=== PATIENT | female | born 1980 | race African-American/Black ===

== ENCOUNTER 2021-01-10 06:40 | Emergency (ER) | payer SELFPAY ==
[~2021-01-10] VITALS: Ht 175.3 cm; Wt 104.0 kg
[2021-01-10] MEDS: FAMOTIDINE 20 MG/2 ML VIAL IVP ONE (07:25)
[2021-01-10] MEDS: IV NORMAL SALINE 1000ML BAG 1,000 ML IV ONE ×2 (07:25→07:58)
[2021-01-10] MEDS: HALOPERIDOL LACTATE 5 MG/ML VIAL. IVP ONE (07:26)
[2021-01-10] MEDS: ONDANSETRON ODT 4 MG TAB.RAPDIS. PO ONE (07:28)
[2021-01-10 07:29] LABS: BASO # 0.1 x10^3/uL (0.0-0.2); BASO % 1 % (0-3); EOS % 0 % (0-3); HEMATOCRIT 43.2 % (36.0-47.0); HEMOGLOBIN 14.9 g/dL (12.0-15.5); LYMPH # 2.5 x10^3/uL (1.0-4.8); LYMPH % 22 % (24-48); MEAN CORPUSCULAR HEMOGLOBIN 31 pg (25-35); MEAN CORPUSCULAR HGB CONC 34 g/dL (31-37); MEAN CORPUSCULAR VOLUME 90 fL (79-100); MONO # 0.5 x10^3/uL (0.0-1.1); MONO % 4 % (0-9); NEUT # 8.4 x10^3/uL (1.8-7.7); NEUT % 73 % (31-73); PLATELET COUNT 382 x10^3/uL (140-400); RED BLOOD COUNT 4.81 x10^6/uL (3.50-5.40); RED CELL DISTRIBUTION WIDTH 14.6 % (11.5-14.5); WHITE BLOOD COUNT 11.6 x10^3/uL (4.0-11.0)
[2021-01-10 07:33] LABS: CALCIUM 9.7 mg/dL (8.5-10.1); GFR 61.7; POTASSIUM 3.9 mmol/L (3.5-5.1)
[2021-01-10] MEDS: METOCLOPRAMIDE HCL 10 MG/2 ML VIAL. IVP ONE (07:55)
[2021-01-10 08:11] LABS: ACETAMIN < 2.0 mcg/ml (10-30)
--- NOTE | 2021-01-10 08:19 | RAD ---
XR CHEST 1V CLINICAL INDICATIONS: Nausea: COMPARISON: None available. Findings: No acute lung infiltrate or pleural effusion or pulmonary edema or lung mass or pneumothora x is seen. The heart size, pulmonary vasculature, mediastinum and both bibiana are unremarkable. IMPRESSION: No acute radiographic abnormality is seen. Electronically signed by: Boris Pardo MD (01/10/2021 8:17 AM) [id number]
--- NOTE | 2021-01-10 08:30 | PHYS DOC ---
Past Medical History Past Medical History: No Pertinent History Past Surgical History: No Surgical History Smoking Status: Current Every Day Smoker Alcohol Use: Occasionally Additional Information: DRANK 1 BOTTLE OF WINE AND SEVERAL SHOTS OF HINESEY LAST NIGHT. USUALLY DRINKS MONTHLY. Social History Narrative: REPORTS THAT SHE SMOKES DAILY. DID SMOKE LAST NIGHT FROM HER OWN SUPPLY. General Adult EDM: Chief Complaint: ALCOHOL INTOXICATION HPI: HPI: 40-year-old female past medical history of frequent daily marijuana use, presents the ED with complaints of epigastric abdominal pain in the setting of intractable nausea, nonbloody, nonbilious vomiting that started around 1:00 this morning after patient drank a bottle of wine and shots of karley, over the course of the day. Patient reports she rarely drinks alcohol. States she ate barbecue with her who has no symptoms of nausea or vomiting. No associated diarrhea or chest pressure. Review of Systems: Review of Systems: Constitutional: Denies fever or chills. [] Eyes: Denies change in visual acuity. [] HENT: Denies nasal congestion or sore throat. [] Respiratory: Denies cough or shortness of breath. [] Cardiovascular: Denies chest pain or edema. [] GI: Denies melena, hematochezia, hematemesis or diarrhea. [] : Denies dysuria or vaginal bleeding Musculoskeletal: Denies back pain or joint pain. [] Integument: Denies rash or diaphoresis Neurologic: Denies headache, focal weakness or sensory changes. [] Endocrine: Denies polyuria or polydipsia. [] Lymphatic: Denies swollen glands. [] Psychiatric: Denies depression or anxiety. [] Heart Score: C/O Chest Pain: No Risk Factors: Risk Factors: DM, Current or recent (<one month) smoker, HTN, HLP, family history of CAD, obesity. Risk Scores: Score 0 - 3: 2.5% MACE over next 6 weeks - Discharge Home Score 4 - 6: 20.3% MACE over next 6 weeks - Admit for Clinical Observation Score 7 - 10: 72.7% MACE over next 6 weeks - Early Invasive Strategies Current Medications: Current Medications Medications (Trade) Dose Ordered Sig/Huber Start Time Stop Time Status Last Admin Dose Admin Famotidine (Pepcid Vial) 20 mg 1X ONCE 01/10/21 07:30 01/10/21 07:31 DC 01/10/21 07:25 20 MG Haloperidol Lactate (Haldol Inj) 5 mg 1X ONCE 01/10/21 07:30 01/10/21 07:31 DC 01/10/21 07:26 5 MG Metoclopramide HCl (Reglan Vial) 10 mg 1X ONCE 01/10/21 07:45 01/10/21 07:46 DC 01/10/21 07:55 10 MG Ondansetron HCl (Zofran Odt) 8 mg 1X ONCE 01/10/21 07:15 01/10/21 07:16 DC 01/10/21 07:28 8 MG Sodium Chloride 1,000 ml @ 1,000 mls/hr 1X ONCE 01/10/21 07:45 01/10/21 08:44 01/10/21 07:58 1,000 MLS/HR Allergies: Allergies: Allergies Coded Allergies Type Severity Reaction Last Updated Verified No Known Drug Allergies 01/10/21 No Physical Exam: PE: Constitutional: Appears uncomfortable, dry heaving with yellow emesis in basin, afebrile, no tachycardia HENT: Normocephalic, atraumatic, Eyes: EOMI, conjunctiva normal, no discharge. Neck: Normal range of motion, supple, Cardiovascular: S1/2 present, regular rhythm Lungs & Thorax: Speaking in full sentences, bilateral equal chest rise, no tachypnea or increased work of breathing Abdomen: soft, epigastric abdominal pain, no rigidity or guarding, no Soni sign, no McBurney's point tenderness Skin: Warm, dry, no erythema, no rash. [] Back: No tenderness, no CVA tenderness. [] Extremities: No tenderness, no cyanosis, no lower extremity edema Neurologic: Alert and oriented X 3, normal motor function, normal sensory function, no focal deficits noted. [] Psychologic: Affect normal, judgement normal, mood normal. [] Current Patient Data: Labs: Laboratory Tests Test 01/10/21 07:05 White Blood Count 11.6 x10^3/uL (4.0-11.0) H Red Blood Count 4.81 x10^6/uL (3.50-5.40) Hemoglobin 14.9 g/dL (12.0-15.5) Hematocrit 43.2 % (36.0-47.0) Mean Corpuscular Volume 90 fL (79-100) Mean Corpuscular Hemoglobin 31 pg (25-35) Mean Corpuscular Hemoglobin Concent 34 g/dL (31-37) Red Cell Distribution Width 14.6 % (11.5-14.5) H Platelet Count 382 x10^3/uL (140-400) Neutrophils (%) (Auto) 73 % (31-73) Lymphocytes (%) (Auto) 22 % (24-48) L Monocytes (%) (Auto) 4 % (0-9) Eosinophils (%) (Auto) 0 % (0-3) Basophils (%) (Auto) 1 % (0-3) Neutrophils # (Auto) 8.4 x10^3/uL (1.8-7.7) H Lymphocytes # (Auto) 2.5 x10^3/uL (1.0-4.8) Monocytes # (Auto) 0.5 x10^3/uL (0.0-1.1) Eosinophils # (Auto) 0.0 x10^3/uL (0.0-0.7) Basophils # (Auto) 0.1 x10^3/uL (0.0-0.2) Sodium Level 144 mmol/L (136-145) Potassium Level 3.9 mmol/L (3.5-5.1) Chloride Level 106 mmol/L (98-107) Carbon Dioxide Level 18 mmol/L (21-32) L Anion Gap 20 (6-14) H Blood Urea Nitrogen 14 mg/dL (7-20) Creatinine 1.0 mg/dL (0.6-1.0) Estimated GFR (Cockcroft-Gault) 61.7 Glucose Level 126 mg/dL (70-99) H Calcium Level 9.7 mg/dL (8.5-10.1) Lipase 72 U/L (73-393) L Salicylates Level 5.0 mg/dL (2.8-20.0) Salicylate Last Dose Date Unknown Salicylate Last Dose Time Unknown Acetaminophen Level < 2.0 mcg/ml (10-30) L Acetaminophen Last Dose Date Unknown Acetaminophen Last Dose Time Unknown Ethyl Alcohol Level 51 mg/dL (0-10) H Laboratory Tests 01/10/21 07:05 Laboratory Tests 01/10/21 07:05 Vital Signs: Vital Signs Date Time Temp Pulse Resp B/P (MAP) Pulse Ox O2 Delivery O2 Flow Rate FiO2 01/10/21 07:08 98.1 80 24 142/78 (99) 100 Room Air 98.1 EKG: EKG: Sinus rhythm at 71 bpm, no axis deviation, QTC prolongation 478, T wave inversion lead III, no ST elevations or ST depressions, no active chest pain Radiology/Procedures: Radiology/Procedures: [] Course & Med Decision Making: Course & Med Decision Making Pertinent Labs and Imaging studies reviewed. (See chart for details) Of nausea, vomiting epigastric abdominal pain in the setting of marijuana use, alcohol abuse and hiatal hernia -etiology is to cause patient's symptoms. Patient served in ED with resolution of symptoms, no further abdominal pain. No signs of pancreatitis or atypical ACS. Patient is requesting be discharged home. Will discharge home with strict ED return precautions were given for intractable nausea or vomiting, fever, severe pain or dehydration. Encouraged urgent outpatient follow-up with PMD and surgery for hiatal hernia definitive management. Life-threatening processes were considered but are low suspicion at this time, given history, physical exam and ED workup. Pt was educated on all prescription medications and adverse effects. All patient's questions were answered and pt was stable at time of discharge. Life/limb-threatening differential includes but is not limited to, aortic dissection, aortic aneurysm, acute coronary syndrome, surgical abdomen (appendicitis, cholecystitis, ischemic bowel, strangulated hernia, etc), bowel obstruction or volvulus, bladder outlet obstruction, gastrointestinal bleeding, inflammatory bowel disease, peptic ulcer disease, ACS/CAD, sepsis, diverticular disease, ureterolithiasis, nephrolithiasis, ovarian or testicular torsion, ectopic , vaginal hemorrhage, or genitourinary infection. I spoken with the patient and her caregivers. I explained the patient's condition, diagnoses and treatment plan based on the information available to me at this time. I have answered the patient and her caregiver's questions and addressed any concerns. The patient and her caregivers have a good understanding of patient's diagnosis, condition and treatment plan as can be expected at this point. Vital signs have been stable. Patient's condition is stable and appropriate for discharge from the emergency department. Patient will pursue further outpatient evaluation with primary care physician or other designated or consulting physician as outlined in the discharge instructions. The patient and/or caregivers are agreeable to this plan of care and follow-up instructions have been explained in detail. The patient and/or caregivers have received these instructions in written form and have expressed an understanding of the discharge instructions. The patient and/or caregivers are aware that any significant change of condition or worsening of symptoms should prompt immediate return to this or the closest emergency department or call to 911. Marcial Disclaimer: Marcial Disclaimer: This electronic medical record was generated, in whole or in part, using a voice recognition dictation system. Departure Departure Impression: Primary Impression: Nausea & vomiting Additional Impressions: Alcohol intoxication Marijuana use Hiatal hernia Disposition: HOME / SELF CARE / HOMELESS Condition: STABLE Referrals: NO PCP (PCP) Follow-up with your primary care physician in 3 to 5 days for reevaluation or FOLLOW UP WITH FAMILY MEDICINE: [address] [facility], [facility] [address] [place] [address] Patient Instructions: Alcohol Intoxication, Hiatal Hernia, Marijuana Abuse- Brief, Nausea and Vomiting Additional Instructions: FOLLOW UP WITH SURGERY: for hiatal hernia management [facility] Address: [address] [facility] [address], [facility] [address] [place] [address] EMERGENCY DEPARTMENT GENERAL DISCHARGE INSTRUCTIONS Thank you for coming to [facility] Emergency Department (ED) today and trusting us with you care. We trust that you had a positive experience in our Emergency Department. If you wish to speak to the department management, you may call the Director at [phone]. YOUR FOLLOW UP INSTRUCTIONS ARE FOLLOWS: 1. Do you have a private Doctor? If you do not have a private doctor, please ask for a resource list of physicians or clinics that may be able to assist you with follow up care. 2. The Emergency Physicain has interpreted your x-rays. The X-Ray specialist will also review them. If there is a change in the findings, you will be notified in 48 hours when at all possible. 3. A lab test or culture has been done, your results will be reviewed and you will be notified if you need a change in treatment. ADDITIONAL INSTRUCTIONS AND INFORMATION: 1. Your care today has been supervised by a physician who is specially trained in emergency care. Many problems require more than one evaluation for a complete diagnosis and treatment. We recommend that you schedule your follow up appointment as recommended to ensure complete treatment of you illness or injury. If you are unable to obtain follow up care and continue to have a problem, or if your condition worsens, we recommend that you return to the ED. 2. We are not able to safely determine your condition over the phone nor are we able to give sound medical advice over the phone. For these safety reasons, if you call for medical advice we will ask you to come to the ED for further evaluation. 3. If you have any questions regarding these discharge instructions please call the ED at [phone]. SAFETY INFORMATION: In the interest of safety, wellness, and injury prevention; we encourage you to wear your sealbelt, if you smoke; quite smoking, and we encourage family to use a protective helmet for bicycling and other sporting events that present an increased risk for head injury. IF YOUR SYMPTOMS WORSEN OR NEW SYMPTOMS DEVELOP, OR YOU HAVE CONCERNS ABOUT YOUR CONDITION; OR IF YOUR CONDITION WORSENS WHILE YOU ARE WAITING FOR YOUR FOLLOW UP APPOINTMENT; EITHER CONTACT YOUR PRIMARY CARE DOCTOR, THE PHYSICIAN WHOSE NAME AND NUMBER YOU WERE GIVEN, OR RETURN TO THE ED IMMEDIATELY. Scripts Ondansetron (ONDANSETRON ODT) 4 Mg Tab.rapdis 1 TAB PO PRN Q6-8HRS, #20 TAB Prov: BERTHA SPENCER DO 01/10/21 BERTHA SPENCER DO January 10, 2021 08:30
[2021-01-10] MEDS: PROCHLORPERAZINE 10 MG/2 ML VIAL. IV ONE (09:29)
[2021-01-10 09:36] LABS: BILIRUBIN,URINE NEGATIVE (NEG); NITRITE,URINE NEGATIVE (NEG); PH,URINE 5.5 (<5.0-8.0); PROTEIN,URINE NEGATIVE (NEG-TRACE); UROBILINOGEN,URINE 0.2 mg/dL (0.2 mg/dL)
[2021-01-10 09:38] LABS: BARBITURATES NEG (NEG); BENZODIAZEPINES NEG (NEG); CANNABINOIDS POS (NEG); COCAINE NEG (NEG); METHADONE NEG (NEG); OPIATES NEG (NEG); PHENCYCLIDINE NEG (NEG)
[2021-01-10 09:39] LABS: U PREG PATIENT NEGATIVE (NEG)
[2021-01-10 09:42] LABS: AMPHETAMINE/METHAMPHETAMINE NEG (NEG)
[2021-01-10] MEDS: IOHEXOL 300 MG/ML 100ML VIAL. IV ONE (09:45)
[2021-01-10] MEDS ORDERED: CONTRAST GIVEN. MC PRN (09:45)
[2021-01-10 09:46] LABS: CLARITY,URINE CLOUDY; COLOR,URINE RED
[2021-01-10 09:47] LABS: BACTERIA,URINE FEW /HPF (0-FEW); RBC,URINE TNTC /HPF (0-2); WBC,URINE OCC /HPF (0-4)
--- NOTE | 2021-01-10 10:06 | EKG ---
[facility] [address] [place] [address] Test Date: 2021-01-10 Test Time: 08:10:55 Pat Name: RACHELLE ANGEL Department: Room: Gender: F Button Inspector: : 1980 Requested By: BERTHA PSENCER Order Number: [id number] Reading MD: Jeovany Maxwell Measurements Intervals [place] Rate: 71 P: 67 IN: 186 QRS: 43 QRSD: 86 T: 18 QT: 440 QTc: 478 Interpretive Statements SINUS RHYTHM QRS(T) CONTOUR ABNORMALITY CONSISTENT WITH ANTEROSEPTAL INFARCT AGE UNDETERMINED ABNORMAL ECG RI6.02 No previous ECG available for comparison Electronically Signed On 01-12-2021 15:26:29 CDT by Jeovany Maxwell
--- NOTE | 2021-01-10 10:41 | RAD ---
CT ABDOMEN+PELVIS W History: epigastric abdominal pain Comparison: None. Technique: After administration of intravenous contrast, helical CT of the abdomen and pelvis was per formed from the lung bases through the ischial tuberosities. Coronal and sagittal reconstructions wer e obtained. 75 mL of Omnipaque 300 were used. One or more of the following dose reduction techniques were utilized: Automated exposure control (AEC), Adjustment of mA and/or kV according to patient size , Use of iterative reconstruction technique such as ASiR, CT scan done according to ALARA and image g ently/image wisely Abdomen Findings: The visualized lung bases are clear. Small hiatal hernia. The liver, gallbladder, pancreas, spleen, and bilateral adrenal glands are normal. Symmetric renal enhancement. There is no focal renal mass. There is no hydronephrosis. The visualized loops of small bowel are normal. The visualized loops of large bowel are normal. There is no evidence of bowel obstruction. Appendix is normal. There is no free fluid. There is no mesenteric or retroperitoneal adenopathy. The abdominal aorta is normal in caliber. Pelvis Findings: Urinary bladder is normal. Uterus is present. No pelvic free fluid. There is no pelvic or inguinal ad enopathy. There is no acute bony abnormality. IMPRESSION: 1. No acute findings. 2. Small hiatal hernia. Electronically signed by: Pancho Kelsey MD (01/10/2021 10:39 AM) [id number]
[2021-01-10 12:50] VITALS: BP 146/67
[2021-01-10] MEDS ORDERED: ONDA4TAB12 PO (13:01)
== END 2021-01-10 13:33 | disposition home or self-care (01) ==
LOC: ER 06:40
DX: K44.9 Diaphragmatic hernia without obstruction or gangrene (principal); R11.2 Nausea with vomiting, unspecified; F12.90 Cannabis use, unspecified, uncomplicated; F10.129 Alcohol abuse with intoxication, unspecified; Y90.2 Blood alcohol level of 40-59 mg/100 ml; F17.200 Nicotine dependence, unspecified, uncomplicated
CPT/HCPCS: 36415; 71045; 74177; 80048; 80307; 80329; 81001; 81025; 82550; 83690; 83735; 83930; 85025; 87086; 93005; 96361; 96374; 96375; 99285; G0480; J0780; J1630; J2765; J3490; J7030; Q9967

== ENCOUNTER 2021-03-18 10:44 | Emergency (ER) | payer SELFPAY ==
[~2021-03-18] VITALS: Ht 175.3 cm; Wt 115.3 kg
[~2021-03-18 10:44] MED LIST: ONDA4TAB12 PO
[2021-03-18 11:20] LABS: BILIRUBIN,URINE NEGATIVE (NEG); CLARITY,URINE CLEAR; COLOR,URINE YELLOW; NITRITE,URINE NEGATIVE (NEG); PROTEIN,URINE NEGATIVE (NEG-TRACE)
[2021-03-18 11:27] LABS: AMPHETAMINE/METHAMPHETAMINE NEG (NEG); BARBITURATES NEG (NEG); BENZODIAZEPINES NEG (NEG); CANNABINOIDS POS (NEG); COCAINE NEG (NEG); METHADONE NEG (NEG); OPIATES NEG (NEG); PHENCYCLIDINE NEG (NEG)
[2021-03-18 11:38] LABS: BACTERIA,URINE FEW /HPF (0-FEW); RBC,URINE RARE /HPF (0-2)
[2021-03-18 11:43] VITALS: BP 170/108
--- NOTE | 2021-03-18 11:46 | PHYS DOC ---
Past Medical History Past Medical History: No Pertinent History (FELICIANOLAMAR Zazueta CREDIT COLLECTIONS SPECIALIST) Past Surgical History: Oophorectomy (FELICIANOLAMAR Zazueta CREDIT COLLECTIONS SPECIALIST) Smoking Status: Current Every Day Smoker Alcohol Use: Occasionally (BISHOPLAMAR GARCIA CREDIT COLLECTIONS SPECIALIST) General Adult EDM: Chief Complaint: MULTIPLE COMPLAINTS HPI: HPI: Patient is a 41 year old female who presents to the ED today with multiple complaints. Patient states ever since she fell 2 to 3 weeks ago hitting her head on the ground she has had multiple strange feelings throughout her body. She states she usually gets this weird sensation in the left upper extremity, and left lower extremity. Patient states she believes she has a blood clot that is traveling up and down her body from the day she fell. Denies any chest pain, denies any fever coughing or congestion. Denies any shortness of breath. (FELICIANOLAMAR Zazueta CREDIT COLLECTIONS SPECIALIST) Review of Systems: Review of Systems: Constitutional: Denies fever or chills. [] Eyes: Denies change in visual acuity. [] HENT: Denies nasal congestion or sore throat. [] Respiratory: Denies cough or shortness of breath. [] Cardiovascular: Denies chest pain or edema. [] GI: Denies abdominal pain, nausea, vomiting, bloody stools or diarrhea. [] : Denies dysuria. [] Musculoskeletal: Denies back pain or joint pain. [] Integument: Denies rash. [] Neurologic: Reports falling and hitting the head. Reports with sensation to the left upper and left lower extremity denies headache, focal weakness or sensory changes. [] Endocrine: Denies polyuria or polydipsia. [] Lymphatic: Denies swollen glands. [] Psychiatric: Denies depression or anxiety. [] (LAMAR COLBERT CREDIT COLLECTIONS SPECIALIST) Heart Score: C/O Chest Pain: N/A Risk Factors: Risk Factors: DM, Current or recent (<one month) smoker, HTN, HLP, family history of CAD, obesity. Risk Scores: Score 0 - 3: 2.5% MACE over next 6 weeks - Discharge Home Score 4 - 6: 20.3% MACE over next 6 weeks - Admit for Clinical Observation Score 7 - 10: 72.7% MACE over next 6 weeks - Early Invasive Strategies (LAMAR COLBERT CREDIT COLLECTIONS SPECIALIST) Allergies: Allergies: Allergies Coded Allergies Type Severity Reaction Last Updated Verified No Known Drug Allergies 01/10/21 No (LAMAR COLBERT CREDIT COLLECTIONS SPECIALIST) Physical Exam: PE: Constitutional: Well developed, well nourished, no acute distress, non-toxic appearance. [] HENT: Normocephalic, atraumatic, bilateral external ears normal, oropharynx moist, no oral exudates, nose normal. [] Eyes: PERRLA, EOMI, conjunctiva normal, no discharge. [] Neck: Normal range of motion, no tenderness, supple, no stridor. [] Cardiovascular:Heart rate regular rhythm, no murmur [] Lungs & Thorax: Bilateral breath sounds clear to auscultation [] Abdomen: Bowel sounds normal, soft, no tenderness, no masses, no pulsatile masses. [] Skin: Warm, dry, no erythema, no rash. [] Back: No tenderness, no CVA tenderness. [] Extremities: No tenderness, no cyanosis, no clubbing, ROM intact, no edema. Negative Homans' sign bilaterally Neurologic: Alert and oriented X 3, normal motor function, normal sensory function, no focal deficits noted. Cranial nerves II through XII intact Psychologic: Affect normal, judgement normal, mood normal. [] (LAMAR COLBERT CREDIT COLLECTIONS SPECIALIST) Current Patient Data: Labs: Laboratory Tests Test 03/18/21 10:58 Urine Collection Type Unknown Urine Color Yellow Urine Clarity Clear Urine pH 6.0 (<5.0-8.0) Urine Specific [place] 1.015 (1.000-1.030) Urine Protein Negative mg/dL (NEG-TRACE) Urine Glucose (UA) Negative mg/dL (NEG) Urine Ketones (Stick) Negative mg/dL (NEG) Urine Blood Negative (NEG) Urine Nitrite Negative (NEG) Urine Bilirubin Negative (NEG) Urine Urobilinogen Dipstick 1.0 mg/dL (0.2 mg/dL) Urine Leukocyte Esterase Negative (NEG) Urine RBC Rare /HPF (0-2) Urine WBC 1-4 /HPF (0-4) Urine Squamous Epithelial Cells Many /LPF Urine Bacteria Few /HPF (0-FEW) Urine Mucus Slight /LPF Urine Opiates Screen Neg (NEG) Urine Methadone Screen Neg (NEG) Urine Barbiturates Neg (NEG) Urine Phencyclidine Screen Neg (NEG) Urine Amphetamine/Methamphetamine Neg (NEG) Urine Benzodiazepines Screen Neg (NEG) Urine Cocaine Screen Neg (NEG) Urine Cannabinoids Screen Pos (NEG) Urine Ethyl Alcohol Neg (NEG) Vital Signs: Vital Signs Date Time Temp Pulse Resp B/P (MAP) Pulse Ox O2 Delivery O2 Flow Rate FiO2 03/18/21 11:04 97.8 68 14 158/91 98 Room Air 97.8 (LAMAR COLBERT CREDIT COLLECTIONS SPECIALIST) EKG: EKG: [] (LAMAR COLBERT CREDIT COLLECTIONS SPECIALIST) Radiology/Procedures: Radiology/Procedures: []PROCEDURE: CT HEAD AND CERVICAL SPINE WO EXAM: Head and cervical spine CT without contrast. HISTORY: Fall. Pain. TECHNIQUE: Computed tomographic images of the head and cervical spine were obtained without contrast. *One or more of the following individualized dose reduction techniques were utilized for this examination: 1. Automated exposure control. 2. Adjustment of the mA and/or kV according to patient size. 3. Use of iterative reconstruction technique. COMPARISON: None. FINDINGS: Head: There is no hemorrhage. There is no mass effect or midline shift. There is no hydrocephalus. The anton-white matter differentiation pattern is intact. There is no calvarial lesion. The visualized orbits, paranasal sinuses mastoid air cells are unremarkable. Cervical spine: There is minimal retrolisthesis of C4 on C5, likely positional or degenerative in etiology. The vertebral bodies are normal in height and the disc spaces are preserved. There is a tiny benign hemangioma within C4. There is no suspicious osseous lesion. There is no significant foraminal or central canal stenosis. IMPRESSION: No acute intracranial finding or evidence of acute cervical spine trauma. Electronically signed by: Lorena Benjamin MD (03/18/2021 12:08 PM) [id number] DICTATED and SIGNED BY: LORENA BENJAMIN MD DATE: 03/18/21 [id number] 0 (LAMAR COLBERT CREDIT COLLECTIONS SPECIALIST) Course & Med Decision Making: Course & Med Decision Making Pertinent Labs and Imaging studies reviewed. (See chart for details) This a 41-year-old female patient presented to the ED today with multiple complaints. Patient states she fell down 2 to 3 weeks ago hitting her head on the ground. She states since then she has had weird sensation in the left upper extremity and left lower extremity, she believes she has a blood clot going up and down her body that she believes came from the fall. CT of the head and cervical spine are negative. Discharged home. Follow-up with PCP in 1 week (LAMAR COLBERT APRN) Course & Med Decision Making I was not personally involved in the care of this patient while in the Emergency Department. I was immediately available to our staff ROSALINDA. Wili Oswald MD (WILI OSWALD MD) Dragon Disclaimer: Dragon Disclaimer: This electronic medical record was generated, in whole or in part, using a voice recognition dictation system. (LAMAR COLBERT APRN) Departure Departure Impression: Primary Impression: Fall Qualified Codes: W19.XXXA - Unspecified fall, initial encounter Additional Impression: Head contusion Qualified Codes: S00.83XA - Contusion of other part of head, initial encounter Disposition: HOME / SELF CARE / HOMELESS Condition: STABLE Referrals: NO PCP (PCP) Follow-up with your primary care doctor in 1 to 2 weeks Patient Instructions: Contusion, [id number] Additional Instructions: You were evaluated in the emergency room, your CAT scan of your head and neck are negative for any acute findings. Please follow-up with your primary care doctor in 1 to 2 weeks. Come back to the ED at any point symptoms worsen LAMAR COLBERT APRN Mar 18, 2021 11:45 WILI OSWALD MD Mar 18, 2021 17:56
--- NOTE | 2021-03-18 12:10 | RAD ---
EXAM: Head and cervical spine CT without contrast. HISTORY: Fall. Pain. TECHNIQUE: Computed tomographic images of the head and cervical spine were obtained without contrast. *One or more of the following individualized dose reduction techniques were utilized for this examina tion: 1. Automated exposure control. 2. Adjustment of the mA and/or kV according to patient size. 3. Use of iterative reconstruction technique. COMPARISON: None. FINDINGS: Head: There is no hemorrhage. There is no mass effect or midline shift. There is no hydrocephalus. Th e anton-white matter differentiation pattern is intact. There is no calvarial lesion. The visualized o rbits, paranasal sinuses mastoid air cells are unremarkable. Cervical spine: There is minimal retrolisthesis of C4 on C5, likely positional or degenerative in jennifer ology. The vertebral bodies are normal in height and the disc spaces are preserved. There is a tiny b enign hemangioma within C4. There is no suspicious osseous lesion. There is no significant foraminal or central canal stenosis. IMPRESSION: No acute intracranial finding or evidence of acute cervical spine trauma. Electronically signed by: Lorena Fernández MD (03/18/2021 12:08 PM) [id number]
== END 2021-03-18 12:35 | disposition home or self-care (01) ==
LOC: ER 10:44
DX: S00.83XA Contusion of other part of head, initial encounter (principal); F17.200 Nicotine dependence, unspecified, uncomplicated; W18.09XA Striking against other object with subsequent fall, initial encounter; Y93.89 Activity, other specified; Y92.89 Other specified places as the place of occurrence of the external cause; Y99.8 Other external cause status
CPT/HCPCS: 70450; 72125; 80307; 81001; 99285-25

== ENCOUNTER 2021-03-26 10:24 | Emergency (ER) | payer SELFPAY ==
[~2021-03-26] VITALS: Ht 175.3 cm; Wt 122.0 kg
[2021-03-26 11:05] VITALS: BP 169/91
[2021-03-26] MEDS ORDERED: HYDR-2761 PO (11:45)
[2021-03-26] MEDS ORDERED: AMOX500C PO (11:45)
--- NOTE | 2021-03-26 11:47 | PHYS DOC ---
Past Medical History Past Medical History: No Pertinent History Past Surgical History: No Surgical History Smoking Status: Never Smoker Alcohol Use: None General Adult EDM: Chief Complaint: DENTAL PROBLEM HPI: HPI: Patient is a 41 year old female who presents with lower back molar on the right side is broken and painful since last night. She states that she called several dentists and she got an appointment at [facility] on this coming Monday. Patient states the pain is shooting up into her head. Patient denies any other past medical history. She rates her pain an 8 out of 10 at this time. She denies fever, body aches, nausea vomiting, dizziness. Review of Systems: Review of Systems: Constitutional: Denies fever or chills. [] Eyes: Denies change in visual acuity. [] HENT: Denies nasal congestion or sore throat. + Dental pain [] Respiratory: Denies cough or shortness of breath. [] Cardiovascular: Denies chest pain or edema. [] GI: Denies abdominal pain, nausea, vomiting, bloody stools or diarrhea. [] : Denies dysuria. [] Musculoskeletal: Denies back pain or joint pain. [] Integument: Denies rash. [] Neurologic: Denies headache, focal weakness or sensory changes. [] Endocrine: Denies polyuria or polydipsia. [] Lymphatic: Denies swollen glands. [] Psychiatric: Denies depression or anxiety. [] Heart Score: C/O Chest Pain: No Risk Factors: Risk Factors: DM, Current or recent (<one month) smoker, HTN, HLP, family history of CAD, obesity. Risk Scores: Score 0 - 3: 2.5% MACE over next 6 weeks - Discharge Home Score 4 - 6: 20.3% MACE over next 6 weeks - Admit for Clinical Observation Score 7 - 10: 72.7% MACE over next 6 weeks - Early Invasive Strategies Allergies: Allergies: Allergies Coded Allergies Type Severity Reaction Last Updated Verified No Known Drug Allergies 01/10/21 No Physical Exam: PE: Constitutional: Well developed, well nourished, no acute distress, non-toxic appearance. [] HENT: Normocephalic, atraumatic, bilateral external ears normal, oropharynx moist, no oral exudates, nose normal. Right lower back molar broken tooth. Tenderness to the gumline. No pus pocket felt. [] Eyes: PERRLA, EOMI, conjunctiva normal, no discharge. [] Neck: Normal range of motion, no tenderness, supple, no stridor. [] Cardiovascular:Heart rate regular rhythm, no murmur [] Lungs & Thorax: Bilateral breath sounds clear to auscultation [] Abdomen: Bowel sounds normal, soft, no tenderness, no masses, no pulsatile masses. [] Skin: Warm, dry, no erythema, no rash. [] Back: No tenderness, no CVA tenderness. [] Extremities: No tenderness, no cyanosis, no clubbing, ROM intact, no edema. [] Neurologic: Alert and oriented X 3, normal motor function, normal sensory function, no focal deficits noted. [] Psychologic: Affect normal, judgement normal, mood normal. [] Current Patient Data: Vital Signs: Vital Signs Date Time Temp Pulse Resp B/P (MAP) Pulse Ox O2 Delivery O2 Flow Rate FiO2 03/26/21 11:05 98.4 65 16 169/91 99 Room Air 98.4 EKG: EKG: [] Radiology/Procedures: Radiology/Procedures: [] Course & Med Decision Making: Course & Med Decision Making Pertinent Labs and Imaging studies reviewed. (See chart for details) See HPI. Tenderness with palpation around the gumline and down below just adjacent in the cheek mucosa. Afebrile. No trismus. No signs of Russ. She can stick her tongue out fully. No tenderness or swelling under the tongue. Uvula midline. Speaks in full clear sentences. [] Dragon Disclaimer: Dragon Disclaimer: This electronic medical record was generated, in whole or in part, using a voice recognition dictation system. Departure Departure Impression: Primary Impression: Pain, dental Disposition: HOME / SELF CARE / HOMELESS Condition: STABLE Referrals: NO PCP (PCP) Patient Instructions: Dental Abscess, Dental Caries Additional Instructions: Follow-up with your dentist as scheduled or sooner. Take medication as prescribed and with food. Remember this pain medication will make you sleepy so do not drive or work on this medication. Scripts Hydrocodone Bit/Acetaminophen (HYDROCODONE-APAP 5-325 ) 1 Tab Tablet 1 TAB PO PRN Q6HRS PRN for PAIN, #6 TAB 0 Refills Prov: ELTONMARLENE M MARINE FITTER 8/13/21 Amoxicillin (AMOXICILLIN) 500 Mg Capsule 1 CAP PO BID, #20 CAP Prov: MARLENE CONDE APRN 03/26/21 MARLENE CONDE APRN Mar 26, 2021 11:47
== END 2021-03-26 12:27 | disposition home or self-care (01) ==
LOC: ER 10:24
DX: K08.89 Other specified disorders of teeth and supporting structures (principal)
CPT/HCPCS: 99283

== ENCOUNTER 2021-04-18 09:11 | Emergency (ER) | payer OTHER ==
[~2021-04-18] VITALS: Ht 175.3 cm; Wt 108.0 kg
[~2021-04-18 09:11] MED LIST changes: +AMOX500C PO; +HYDR-2761 PO
[2021-04-18] MEDS ORDERED: HALOPERIDOL LACTATE 5 MG/ML VIAL. IVP ONE (09:30)
[2021-04-18] MEDS ORDERED: diphenhydrAMINE 50 MG/ML VIAL IVP ONE (09:30)
[2021-04-18] MEDS ORDERED: IV NORMAL SALINE 1000ML BAG 1,000 ML IV SCH (09:30)
--- NOTE | 2021-04-18 09:32 | PHYS DOC ---
Past Medical History Past Medical History: No Pertinent History Past Surgical History: No Surgical History Smoking Status: Never Smoker Alcohol Use: None General Adult EDM: Chief Complaint: NAUSEA/VOMITING/DIARRHEA HPI: HPI: Patient is a 41 year old female who presents with last night began vomiting. She states she has been getting out of a hot shower to try to help the nausea but she keeps vomiting. Patient is rolling around in the bed moaning holding her abdomen. She states she does not have any abdominal pain. 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 Patient has had this before in the past and was given Haldol and she stated that made her feel better. Patient has a history of cyclic vomiting, marijuana use. Denies any pain, chest pain, shortness of breath, fever, cough, headache, dizziness, visual changes, numbness or tingling, abdominal pain, diarrhea. Patient is not Covid vaccinated. Review of Systems: Review of Systems: Constitutional: Denies fever or chills. [] Eyes: Denies change in visual acuity. [] HENT: Denies nasal congestion or sore throat. [] Respiratory: Denies cough or shortness of breath. [] Cardiovascular: Denies chest pain or edema. [] GI: Denies abdominal pain, +nausea, +vomiting, denies bloody stools or diarrhea. [] : Denies dysuria. [] Musculoskeletal: Denies back pain or joint pain. [] Integument: Denies rash. [] Neurologic: Denies headache, focal weakness or sensory changes. [] Endocrine: Denies polyuria or polydipsia. [] Lymphatic: Denies swollen glands. [] Psychiatric: Denies depression or anxiety. [] Heart Score: C/O Chest Pain: No Risk Factors: Risk Factors: DM, Current or recent (<one month) smoker, HTN, HLP, family history of CAD, obesity. Risk Scores: Score 0 - 3: 2.5% MACE over next 6 weeks - Discharge Home Score 4 - 6: 20.3% MACE over next 6 weeks - Admit for Clinical Observation Score 7 - 10: 72.7% MACE over next 6 weeks - Early Invasive Strategies Allergies: Allergies: Allergies Coded Allergies Type Severity Reaction Last Updated Verified No Known Drug Allergies 01/10/21 No Physical Exam: PE: Constitutional: Well developed, well nourished, no acute distress, non-toxic appearance. [] HENT: Normocephalic, atraumatic, bilateral external ears normal, oropharynx moist, no oral exudates, nose normal. [] Eyes: PERRLA, EOMI, conjunctiva normal, no discharge. [] Neck: Normal range of motion, no tenderness, supple, no stridor. [] Cardiovascular:Heart rate regular rhythm, no murmur [] Lungs & Thorax: Bilateral breath sounds clear to auscultation [] Abdomen: Bowel sounds normal, soft, no tenderness, no masses, no pulsatile masses. [] Skin: Warm, dry, no erythema, no rash. [] Back: No tenderness, no CVA tenderness. [] Extremities: No tenderness, no cyanosis, no clubbing, ROM intact, no edema. [] Neurologic: Alert and oriented X 3, normal motor function, normal sensory function, no focal deficits noted. [] Psychologic: Affect normal, judgement normal, mood normal. [] Normal physical exam EKG: EK and read by Dr Castro as Sinus Rhythm and no STEMI Radiology/Procedures: Radiology/Procedures: [] Impression: [facility] [address] [place], [place] [id number] IMAGING REPORT Signed PATIENT: RACHELLE ANGEL ACCOUNT: [id number] : 1980 LOCATION: ER AGE: 41 SEX: F EXAM STATUS: REG ER ORD. PHYSICIAN: MARLENE CONDE APRN REASON: vomiting PROCEDURE: ACUTE ABDOMEN SERIES Exam Date: 04/18/2021 9:34 AM XR ABDOMEN COMP ACUTE Indication: Reason: vomiting / Spl. Instructions: / History: . FINDINGS/ IMPRESSION: CHEST: The cardiac silhouette, pulmonary vasculature and lung garcia are within normal limits. The osseous structures are intact. ABDOMEN AND PELVIS: There is a non-dilated, non-obstructed bowel gas pattern. Air and fecal matter is seen within the colon. The visualized osseous structures are intact. Electronically signed by: Shonna Quinones MD (04/18/2021 9:57 AM) [facility] DICTATED and SIGNED BY: SHONNA QUINONES MD DATE: 04/18/21 [id number] Course & Med Decision Making: Course & Med Decision Making Pertinent Labs and Imaging studies reviewed. (See chart for details) See HPI. Alert and oriented x4. Ambulatory steady gait. Speaks in full clear sentences. Anxious and rolling around the bed moaning because she is so nauseated. She is denying any pain. Abdomen is soft and nontender. After Haldol given patient's nausea and vomiting stopped. Her magnesium and potassium were low. They were replaced in the ED. [] Dragon Disclaimer: Dragon Disclaimer: This electronic medical record was generated, in whole or in part, using a voice recognition dictation system. Departure Departure Impression: Primary Impression: Cyclical vomiting Additional Impressions: Marijuana abuse Hypomagnesemia Hypokalemia Disposition: 01 HOME / SELF CARE / HOMELESS Condition: STABLE Referrals: NO PCP (PCP) Patient Instructions: Cyclic Vomiting Syndrome, Hypokalemia, Hypomagnesemia, Marijuana Abuse and Chemical Dependency Additional Instructions: Follow-up with your primary care provider. Drink plenty of fluids. Begin taking a multivitamin every day. Stop smoking marijuana as this is making you vomit. Scripts Capsaicin (CAPSAICIN) 42.5 Gm Cream..g. 1 ROSALINDA TP TID PRN for VOMITING, #1 GM 0 Refills Prov: MARLENE CONDE APRN 04/18/21 MARLENE CONDE APRN Apr 18, 2021 09:32
[2021-04-18 09:42] LABS: BASO % 0 % (0-3); EOS % 0 % (0-3); HEMATOCRIT 40.8 % (36.0-47.0); HEMOGLOBIN 14.1 g/dL (12.0-15.5); LYMPH # 1.1 x10^3/uL (1.0-4.8); LYMPH % 8 % (24-48); MEAN CORPUSCULAR HEMOGLOBIN 32 pg (25-35); MEAN CORPUSCULAR HGB CONC 35 g/dL (31-37); MEAN CORPUSCULAR VOLUME 92 fL (79-100); MONO # 0.4 x10^3/uL (0.0-1.1); MONO % 3 % (0-9); NEUT % 89 % (31-73); PLATELET COUNT 325 x10^3/uL (140-400); RED BLOOD COUNT 4.45 x10^6/uL (3.50-5.40); RED CELL DISTRIBUTION WIDTH 13.3 % (11.5-14.5); WHITE BLOOD COUNT 14.6 x10^3/uL (4.0-11.0)
[2021-04-18 09:56] LABS: CALCIUM 9.2 mg/dL (8.5-10.1); GFR 74.3; POTASSIUM 3.3 mmol/L (3.5-5.1)
[2021-04-18 09:57] LABS: AMPHETAMINE/METHAMPHETAMINE NEG (NEG); BARBITURATES NEG (NEG); BENZODIAZEPINES NEG (NEG); CANNABINOIDS POS (NEG); COCAINE NEG (NEG); METHADONE NEG (NEG); OPIATES NEG (NEG); PHENCYCLIDINE NEG (NEG)
[2021-04-18] MEDS ORDERED: POTASSIUM CHLORIDE 20 MEQ TABLET.ER. PO ONE (10:00)
[2021-04-18] MEDS ORDERED: MAGNESIUM SULFATE 2GM 50 ML IV ONE (10:00)
[2021-04-18] MEDS ORDERED: POTASSIUM CHLORIDE 20MEQ 100 ML IV ONE (10:00)
--- NOTE | 2021-04-18 10:00 | RAD ---
Exam Date: 04/18/2021 9:34 AM XR ABDOMEN COMP ACUTE Indication: Reason: vomiting / Spl. Instructions: / History: . FINDINGS/ IMPRESSION: CHEST: The cardiac silhouette, pulmonary vasculature and lung garcia are within normal limits. The osseous structures are intact. ABDOMEN AND PELVIS: There is a non-dilated, non-obstructed bowel gas pattern. Air and fecal matter is seen within the co davide. The visualized osseous structures are intact. Electronically signed by: Adrian Quinones MD (04/18/2021 9:57 AM) [facility]
[2021-04-18 10:04] LABS: ALBUMIN 4.1 g/dL (3.4-5.0); ALBUMIN/GLOBULIN RATIO 1.1 (1.0-1.7); TOTAL BILIRUBIN 0.5 mg/dL (0.2-1.0); TOTAL PROTEIN 7.9 g/dL (6.4-8.2)
[2021-04-18 10:09] LABS: BACTERIA,URINE MODERATE /HPF (0-FEW); BILIRUBIN,URINE NEGATIVE (NEG); CLARITY,URINE HAZY; COLOR,URINE YELLOW; NITRITE,URINE NEGATIVE (NEG); PROTEIN,URINE 30 mg/dL (NEG-TRACE); RBC,URINE RARE /HPF (0-2); UROBILINOGEN,URINE 0.2 mg/dL (0.2 mg/dL); WBC,URINE OCC /HPF (0-4)
[2021-04-18] MEDS ORDERED: IV NORMAL SALINE 1000ML BAG 1,000 ML IV ONE (10:30)
[2021-04-18 11:00] VITALS: BP 172/71
[2021-04-18] MEDS ORDERED: CAPS42.514 TP (11:56)
--- NOTE | 2021-04-18 14:56 | EKG ---
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
--- NOTE | 2021-04-19 01:05 | EKG ---
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
== END 2021-04-18 12:30 | disposition home or self-care (01) ==
LOC: ER 09:11
DX: R11.15 Cyclical vomiting syndrome unrelated to migraine (principal); F12.10 Cannabis abuse, uncomplicated; E83.42 Hypomagnesemia; E87.6 Hypokalemia
CPT/HCPCS: 36415; 74022; 80053; 80307; 81001; 81025; 83690; 83735; 84484; 85025; 87086; 93005; 96361; 96365; 96368; 96375; 99285; J1200; J1630; J3475; J3480; J7030

== ENCOUNTER 2021-04-19 11:49 | Emergency (ER) | payer OTHER ==
[~2021-04-19] VITALS: Ht 167.6 cm; Wt 105.0 kg
[~2021-04-19 11:49] MED LIST changes: +CAPS42.514 TP
--- NOTE | 2021-04-19 12:36 | PHYS DOC ---
Past Medical History Past Medical History: No Pertinent History Past Surgical History: No Surgical History Additional Past Surgical Histo: ovarian cyst sx Smoking Status: Current Every Day Smoker Alcohol Use: None General Adult EDM: Chief Complaint: NAUSEA/VOMITING/DIARRHEA HPI: HPI: Patient is a 41 year old female who present to ER with nausea vomiting and abdominal pain. Patient has history of cyclic vomiting syndrome due to marij uana abuse. Patient was seen here yesterday with same problem. Patient says she was given Haldol and it helped her symptoms significantly. Patient was prescribed some oil to rub on her belly with the symptom but when she went to work this morning she started feeling nauseous and vomit again, she used the oil to rub her belly but it did not help with her symptoms so she came here for evaluation. Patient denies that she smoked any marijuana today. Review of Systems: Review of Systems: Constitutional: Denies fever or chills. [] Eyes: Denies change in visual acuity. [] HENT: Denies nasal congestion or sore throat. [] Respiratory: Denies cough or shortness of breath. [] Cardiovascular: Denies chest pain or edema. [] GI: Positive for abdominal pain with nausea vomiting, no diarrhea. : Denies dysuria. [] Musculoskeletal: Denies back pain or joint pain. [] Integument: Denies rash. [] Neurologic: Denies headache, focal weakness or sensory changes. [] Endocrine: Denies polyuria or polydipsia. [] Lymphatic: Denies swollen glands. [] Psychiatric: Denies depression or anxiety. [] Heart Score: C/O Chest Pain: N/A Risk Factors: Risk Factors: DM, Current or recent (<one month) smoker, HTN, HLP, family history of CAD, obesity. Risk Scores: Score 0 - 3: 2.5% MACE over next 6 weeks - Discharge Home Score 4 - 6: 20.3% MACE over next 6 weeks - Admit for Clinical Observation Score 7 - 10: 72.7% MACE over next 6 weeks - Early Invasive Strategies Current Medications: Current Medications Medications (Trade) Dose Ordered Sig/Huber Start Time Stop Time Status Last Admin Dose Admin Diphenhydramine HCl (Benadryl) 50 mg 1X ONCE 04/19/21 12:45 04/19/21 12:46 UNV Metoclopramide HCl (Reglan Vial) 10 mg 1X ONCE 04/19/21 12:45 04/19/21 12:46 UNV Sodium Chloride 1,000 ml @ 1,000 mls/hr 1X ONCE 04/19/21 12:45 04/19/21 13:44 Allergies: Allergies: Allergies Coded Allergies Type Severity Reaction Last Updated Verified No Known Drug Allergies 04/19/21 No Physical Exam: PE: Constitutional: Well developed, well nourished, no acute distress, non-toxic appearance. [] HENT: Normocephalic, atraumatic, bilateral external ears normal, oropharynx moist, no oral exudates, nose normal. [] Eyes: PERRLA, EOMI, conjunctiva normal, no discharge. [] Neck: Normal range of motion, no tenderness, supple, no stridor. [] Cardiovascular:Heart rate regular rhythm, no murmur [] Lungs & Thorax: Bilateral breath sounds clear to auscultation [] Abdomen: Bowel sounds normal, soft, no tenderness, no masses, no pulsatile masses. [] Skin: Warm, dry, no erythema, no rash. [] Back: No tenderness, no CVA tenderness. [] Extremities: No tenderness, no cyanosis, no clubbing, ROM intact, no edema. [] Neurologic: Alert and oriented X 3, normal motor function, normal sensory function, no focal deficits noted. [] Psychologic: Affect normal, judgement normal, mood normal. [] Current Patient Data: Labs: Laboratory Tests Test 04/19/21 12:30 White Blood Count 11.7 x10^3/uL Red Blood Count 4.55 x10^6/uL Hemoglobin 14.3 g/dL Hematocrit 42.7 % Mean Corpuscular Volume 94 fL Mean Corpuscular Hemoglobin 31 pg Mean Corpuscular Hemoglobin Concent 33 g/dL Red Cell Distribution Width 13.6 % Platelet Count 311 x10^3/uL Neutrophils (%) (Auto) 81 % Lymphocytes (%) (Auto) 14 % Monocytes (%) (Auto) 5 % Eosinophils (%) (Auto) 0 % Basophils (%) (Auto) 1 % Neutrophils # (Auto) 9.4 x10^3/uL Lymphocytes # (Auto) 1.6 x10^3/uL Monocytes # (Auto) 0.6 x10^3/uL Eosinophils # (Auto) 0.0 x10^3/uL Basophils # (Auto) 0.1 x10^3/uL Sodium Level 141 mmol/L Potassium Level 3.5 mmol/L Chloride Level 104 mmol/L Carbon Dioxide Level 25 mmol/L Anion Gap 12 Blood Urea Nitrogen 11 mg/dL Creatinine 0.9 mg/dL Estimated GFR (Cockcroft-Gault) 83.9 BUN/Creatinine Ratio 12 Glucose Level 114 mg/dL Calcium Level 9.2 mg/dL Magnesium Level 2.1 mg/dL Total Bilirubin 0.8 mg/dL Aspartate Amino Transf (AST/SGOT) 41 U/L Alanine Aminotransferase (ALT/SGPT) 66 U/L Alkaline Phosphatase 56 U/L Total Protein 7.6 g/dL Albumin 3.9 g/dL Albumin/Globulin Ratio 1.1 Lipase 66 U/L Current Medications Medications (Trade) Dose Ordered Sig/Huber Route PRN Reason Start Time Stop Time Status Last Admin Dose Admin Sodium Chloride 1,000 ml @ 1,000 mls/hr 1X ONCE IV 04/19/21 12:45 04/19/21 13:44 DC 04/19/21 12:39 Metoclopramide HCl (Reglan Vial) 10 mg 1X ONCE IVP 04/19/21 12:45 04/19/21 12:46 DC 04/19/21 12:39 Diphenhydramine HCl (Benadryl) 50 mg 1X ONCE IVP 04/19/21 12:45 04/19/21 12:46 DC 04/19/21 12:39 Haloperidol Lactate (Haldol Inj) 5 mg 1X ONCE IVP 04/19/21 13:30 04/19/21 13:31 DC 04/19/21 13:23 Vital Signs: Vital Signs Date Time Temp Pulse Resp B/P (MAP) Pulse Ox O2 Delivery O2 Flow Rate FiO2 04/19/21 12:15 98.5 78 15 148/100 100 Room Air 98.5 EKG: EKG: [] Radiology/Procedures: Radiology/Procedures: [] Course & Med Decision Making: Course & Med Decision Making Pertinent Labs and Imaging studies reviewed. (See chart for details) Patient is a 41-year-old female with history of cyclic vomiting syndrome, presented to ER due to nausea vomiting. Patient was given medication in ER, she feels much better. Patient will be discharged home Dragon Disclaimer: Dragon Disclaimer: This electronic medical record was generated, in whole or in part, using a voice recognition dictation system. Departure Departure Impression: Primary Impression: Cyclical vomiting Disposition: 01 HOME / SELF CARE / HOMELESS Condition: IMPROVED Referrals: NO PCP (PCP) Please follow up with [facility] this week. [address], [address] [place] [address] Phone number: [phone] Patient Instructions: Cyclic Vomiting Syndrome Additional Instructions: Thank you for visiting our Emergency Department. We appreciate you trusting us with your care. If any additional problems come up don't hesitate to return to visit us. Please follow up with your primary care provider so they can plan additional care if needed and know about the problem that you had. If symptoms worsen come back to the Emergency Department. Any concerning symptoms that start such as chest pain, shortness of air, weakness or numbness on one side of the body, running high fevers or any other concerning symptoms return to the ER. DARIAN RGEGORY DO Apr 19, 2021 12:36
[2021-04-19] MEDS ORDERED: METOCLOPRAMIDE HCL 10 MG/2 ML VIAL. IVP ONE (12:45)
[2021-04-19] MEDS ORDERED: diphenhydrAMINE 50 MG/ML VIAL IVP ONE (12:45)
[2021-04-19] MEDS ORDERED: IV NORMAL SALINE 1000ML BAG 1,000 ML IV ONE (12:45)
[2021-04-19 12:51] LABS: BASO # 0.1 x10^3/uL (0.0-0.2); BASO % 1 % (0-3); EOS % 0 % (0-3); HEMATOCRIT 42.7 % (36.0-47.0); HEMOGLOBIN 14.3 g/dL (12.0-15.5); LYMPH # 1.6 x10^3/uL (1.0-4.8); LYMPH % 14 % (24-48); MEAN CORPUSCULAR HEMOGLOBIN 31 pg (25-35); MEAN CORPUSCULAR HGB CONC 33 g/dL (31-37); MEAN CORPUSCULAR VOLUME 94 fL (79-100); MONO # 0.6 x10^3/uL (0.0-1.1); MONO % 5 % (0-9); NEUT # 9.4 x10^3/uL (1.8-7.7); NEUT % 81 % (31-73); PLATELET COUNT 311 x10^3/uL (140-400); RED BLOOD COUNT 4.55 x10^6/uL (3.50-5.40); RED CELL DISTRIBUTION WIDTH 13.6 % (11.5-14.5); WHITE BLOOD COUNT 11.7 x10^3/uL (4.0-11.0)
[2021-04-19 12:57] LABS: CALCIUM 9.2 mg/dL (8.5-10.1); CREATININE 0.9 mg/dL (0.6-1.0); GFR 83.9; POTASSIUM 3.5 mmol/L (3.5-5.1)
[2021-04-19 13:01] LABS: ALBUMIN 3.9 g/dL (3.4-5.0); ALBUMIN/GLOBULIN RATIO 1.1 (1.0-1.7); MAGNESIUM 2.1 mg/dL (1.8-2.4); TOTAL BILIRUBIN 0.8 mg/dL (0.2-1.0); TOTAL PROTEIN 7.6 g/dL (6.4-8.2)
[2021-04-19] MEDS ORDERED: HALOPERIDOL LACTATE 5 MG/ML VIAL. IVP ONE (13:30)
[2021-04-19 13:56] VITALS: BP 148/93
--- NOTE | 2021-04-19 16:40 | EKG ---
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
== END 2021-04-19 14:42 | disposition home or self-care (01) ==
LOC: ER 11:49
DX: R11.15 Cyclical vomiting syndrome unrelated to migraine (principal); F17.200 Nicotine dependence, unspecified, uncomplicated
CPT/HCPCS: 36415; 80053; 83690; 83735; 85025; 93005; 96361; 96374; 96375; 99284; J1200; J1630; J2765; J7030

== ENCOUNTER 2021-04-21 10:42 | Emergency (ER) | payer OTHER ==
[~2021-04-21] VITALS: Ht 175.3 cm; Wt 113.0 kg
[2021-04-21 11:10] VITALS: BP 150/77
[2021-04-21] MEDS ORDERED: HALOPERIDOL LACTATE 5 MG/ML VIAL. IM ONE (11:45)
[2021-04-21] MEDS ORDERED: METOCLOPRAMIDE HCL 10 MG/2 ML VIAL. IM ONE (11:45)
[2021-04-21] MEDS ORDERED: ONDANSETRON ODT 4 MG TAB.RAPDIS. PO ONE (12:00)
--- NOTE | 2021-04-21 12:09 | PHYS DOC ---
Past Medical History Past Medical History: No Pertinent History Additional Past Medical Histor: CYCLIC COMITING Past Surgical History: Other Additional Past Surgical Histo: ovarian cyst sx Smoking Status: Current Every Day Smoker Alcohol Use: None General Adult EDM: Chief Complaint: NAUSEA/VOMITING/DIARRHEA HPI: HPI: Patient is a 41 year old female who present to ER due to nausea and vomiting. Patient has been evaluated here last 2-day for the same problem. Patient has history of cyclic vomiting syndrome, abuse and marijuana. Patient denies any cough or fever. Patient would like a shot of Haldol for her cyclic vomiting syndrome. Review of Systems: Review of Systems: Constitutional: Denies fever or chills. [] Eyes: Denies change in visual acuity. [] HENT: Denies nasal congestion or sore throat. [] Respiratory: Denies cough or shortness of breath. [] Cardiovascular: Denies chest pain or edema. [] GI: Denies abdominal pain, positive for nausea vomiting, no diarrhea : Denies dysuria. [] Musculoskeletal: Denies back pain or joint pain. [] Integument: Denies rash. [] Neurologic: Denies headache, focal weakness or sensory changes. [] Endocrine: Denies polyuria or polydipsia. [] Lymphatic: Denies swollen glands. [] Psychiatric: Denies depression or anxiety. [] Heart Score: C/O Chest Pain: N/A Risk Factors: Risk Factors: DM, Current or recent (<one month) smoker, HTN, HLP, family history of CAD, obesity. Risk Scores: Score 0 - 3: 2.5% MACE over next 6 weeks - Discharge Home Score 4 - 6: 20.3% MACE over next 6 weeks - Admit for Clinical Observation Score 7 - 10: 72.7% MACE over next 6 weeks - Early Invasive Strategies Current Medications: Current Medications Medications (Trade) Dose Ordered Sig/Huber Start Time Stop Time Status Last Admin Dose Admin Haloperidol Lactate (Haldol Inj) 5 mg 1X ONCE 04/21/21 11:45 04/21/21 11:49 DC 04/21/21 11:55 5 MG Metoclopramide HCl (Reglan Vial) 10 mg 1X ONCE 04/21/21 11:45 04/21/21 11:49 DC 04/21/21 11:56 10 MG Ondansetron HCl (Zofran Odt) 8 mg 1X ONCE 04/21/21 12:00 04/21/21 12:01 DC 04/21/21 11:54 8 MG Allergies: Allergies: Allergies Coded Allergies Type Severity Reaction Last Updated Verified No Known Drug Allergies 04/19/21 No Physical Exam: PE: Constitutional: Well developed, well nourished, no acute distress, non-toxic appearance. [] HENT: Normocephalic, atraumatic, bilateral external ears normal, oropharynx moist, no oral exudates, nose normal. [] Eyes: PERRLA, EOMI, conjunctiva normal, no discharge. [] Neck: Normal range of motion, no tenderness, supple, no stridor. [] Cardiovascular:Heart rate regular rhythm, no murmur [] Lungs & Thorax: Bilateral breath sounds clear to auscultation [] Abdomen: Bowel sounds normal, soft, no tenderness, no masses, no pulsatile masses. [] Skin: Warm, dry, no erythema, no rash. [] Back: No tenderness, no CVA tenderness. [] Extremities: No tenderness, no cyanosis, no clubbing, ROM intact, no edema. [] Neurologic: Alert and oriented X 3, normal motor function, normal sensory function, no focal deficits noted. [] Psychologic: Affect normal, judgement normal, mood normal. [] Current Patient Data: Labs: Current Medications Medications (Trade) Dose Ordered Sig/Huber Route PRN Reason Start Time Stop Time Status Last Admin Dose Admin Haloperidol Lactate (Haldol Inj) 5 mg 1X ONCE IM 04/21/21 11:45 04/21/21 11:49 DC 04/21/21 11:55 Metoclopramide HCl (Reglan Vial) 10 mg 1X ONCE IM 04/21/21 11:45 04/21/21 11:49 DC 04/21/21 11:56 Ondansetron HCl (Zofran Odt) 8 mg 1X ONCE PO 04/21/21 12:00 04/21/21 12:01 DC 04/21/21 11:54 Vital Signs: Vital Signs Date Time Temp Pulse Resp B/P (MAP) Pulse Ox O2 Delivery O2 Flow Rate FiO2 04/21/21 11:10 98.4 80 16 150/77 (111) 99 Room Air 98.4 EKG: EKG: [] Radiology/Procedures: Radiology/Procedures: [] Course & Med Decision Making: Course & Med Decision Making Pertinent Labs and Imaging studies reviewed. (See chart for details) [] Dragon Disclaimer: Dragon Disclaimer: This electronic medical record was generated, in whole or in part, using a voice recognition dictation system. Departure Departure Impression: Primary Impression: Cyclical vomiting Disposition: 01 HOME / SELF CARE / HOMELESS Condition: IMPROVED Referrals: NO PCP (PCP) Please follow up with [facility] this week. [address], [address] [place] [address] Phone number: [phone] Patient Instructions: Cyclic Vomiting Syndrome DARIAN GREGORY DO Apr 21, 2021 12:08
== END 2021-04-21 13:08 | disposition left against medical advice (07) ==
LOC: ER 10:42
DX: R11.15 Cyclical vomiting syndrome unrelated to migraine (principal); F17.200 Nicotine dependence, unspecified, uncomplicated
CPT/HCPCS: 96372; 99284; J1630; J2765

== ENCOUNTER 2021-05-06 12:16 | Emergency (ER) | payer OTHER ==
[~2021-05-06] VITALS: Ht 175.3 cm; Wt 104.5 kg
[2021-05-06 12:25] VITALS: BP 163/95
[2021-05-06 13:15] LABS: BILIRUBIN,URINE NEGATIVE (NEG); CLARITY,URINE CLEAR; COLOR,URINE YELLOW; NITRITE,URINE NEGATIVE (NEG); PROTEIN,URINE NEGATIVE (NEG-TRACE); UROBILINOGEN,URINE 0.2 mg/dL (0.2 mg/dL)
[2021-05-06] MEDS ORDERED: AZITHROMYCIN 250 MG TABLET. PO ONE (13:15)
[2021-05-06] MEDS ORDERED: cefTRIAXone IM 500 MG VIAL. IM ONE (13:15)
[2021-05-06 13:28] LABS: BACTERIA,URINE 0 /HPF (0-FEW); RBC,URINE 0 /HPF (0-2); WBC,URINE OCC /HPF (0-4)
--- NOTE | 2021-05-06 13:47 | PHYS DOC ---
Past Medical History Past Medical History: No Pertinent History Additional Past Medical Histor: CYCLIC COMITING (ROSELINE DOMINGO) Past Surgical History: Other Additional Past Surgical Histo: ovarian cyst sx (ROSELINE DOMINGO) Smoking Status: Current Every Day Smoker Alcohol Use: None (ROSELINE DOMINGO) General Adult EDM: Chief Complaint: ABDOMINAL PAIN HPI: HPI: Patient is a 41 year old female who presents with 2-day history of abdominal pain and vaginal odor. Patient states that her abdominal pain is achy in nature, and feels similar to when she was diagnosed with gonorrhea at age 27. She reports associated vaginal odor and pain with urination. She states she has had 1 monogamous sexual partner for the last year and a half. She denies an increase or changes in the quality of her vaginal discharge. Patient denies nausea, vomiting, diarrhea, hematuria. Patient has no other complaints at this time. (ROSELINE DOMINGO) Review of Systems: Review of Systems: Constitutional: Denies fever or chills. Respiratory: Denies cough or shortness of breath. Cardiovascular: Denies chest pain or edema. GI: See HPI : See HPI Musculoskeletal: Denies back pain or joint pain. Integument: Denies rash. Neurologic: Denies headache, focal weakness or sensory changes. (ROSELINE DOMINGO) Heart Score: C/O Chest Pain: No (ROSELINE DOMINGO) Current Medications: Current Medications Medications (Trade) Dose Ordered Sig/Huber Start Time Stop Time Status Last Admin Dose Admin Azithromycin (Zithromax) 1,000 mg 1X ONCE 05/06/21 13:15 05/06/21 13:16 DC Ceftriaxone Sodium (Rocephin Im) 500 mg 1X ONCE 05/06/21 13:15 05/06/21 13:16 DC (ROSELINE DOMINGO) Allergies: Allergies: Allergies Coded Allergies Type Severity Reaction Last Updated Verified No Known Drug Allergies 04/19/21 No (ROSELINE DOMINGO) Physical Exam: PE: Constitutional: Well developed, well nourished, no acute distress, non-toxic appearance. HENT: Normocephalic, atraumatic, bilateral external ears normal, oropharynx moist, no oral exudates, nose normal. Eyes: Conjunctiva normal, no discharge. Cardiovascular: Heart rate regular rhythm, no murmur. Lungs & Thorax: Bilateral breath sounds clear to auscultation. Abdomen: Bowel sounds normal, soft, no tenderness, no masses, no pulsatile masses. : Mons pubis without lesions, appropriate and symmetrical hair growth pattern. Labia majora and minora without lesions. Small amount of white discharge seen at entroitus. Skin: Warm, dry, no erythema, no rash. Back: No tenderness, no CVA tenderness. Extremities: No tenderness, no cyanosis, no clubbing, ROM intact, no edema. Neurologic: Alert and oriented x3, normal motor function, normal sensory function, no focal deficits noted. (ROSELINE DOMINGO) Current Patient Data: Labs: Microbiology Procedure Result WET PREP Final YEAST NONE SEEN TRICHOMONAS NONE SEEN CLUE CELLS NONE SEEN SQUAMOUS EPS FEW Laboratory Tests Test 05/06/21 12:40 05/06/21 12:55 Bedside Urine HCG, Qualitative Hcg negative (Negative) Urine Collection Type Unknown Urine Color Yellow Urine Clarity Clear Urine pH 6.0 (<5.0-8.0) Urine Specific [place] 1.010 (1.000-1.030) Urine Protein Negative mg/dL (NEG-TRACE) Urine Glucose (UA) Negative mg/dL (NEG) Urine Ketones (Stick) Negative mg/dL (NEG) Urine Blood Negative (NEG) Urine Nitrite Negative (NEG) Urine Bilirubin Negative (NEG) Urine Urobilinogen Dipstick 0.2 mg/dL (0.2 mg/dL) Urine Leukocyte Esterase Negative (NEG) Urine RBC 0 /HPF (0-2) Urine WBC Occ /HPF (0-4) Urine Squamous Epithelial Cells Mod /LPF Urine Bacteria 0 /HPF (0-FEW) Vital Signs: Vital Signs Date Time Temp Pulse Resp B/P (MAP) Pulse Ox O2 Delivery O2 Flow Rate FiO2 05/06/21 12:25 98.4 78 20 163/95 (117) 99 Room Air 98.4 (ROSELINE DOMINGO) Course & Med Decision Making: Course & Med Decision Making Pertinent Labs and Imaging studies reviewed. (See chart for details) Due to patient having prior STI diagnosis with reported identical presentation, patient will be treated empirically for gonorrhea/chlamydia. Wet prep and UA were obtained to rule out UTI, trichomoniasis, BV, yeast infection. Patient is aware that definitive gonorrhea/committee a culture results will not be available for a few days. Patient is agreeable to discharge plan. (ROSELINE DOMINGO) Dragon Disclaimer: Dragon Disclaimer: This electronic medical record was generated, in whole or in part, using a voice recognition dictation system. (ROSELINE DOMINGO) Departure Departure Impression: Primary Impression: STI (sexually transmitted infection) Disposition: HOME / SELF CARE / HOMELESS Condition: STABLE Referrals: NO PCP (PCP) Patient Instructions: Sexually Transmitted Disease, [id number] Additional Instructions: Your work-up today ruled out bacterial vaginosis (BV), trichomoniasis, yeast infection, UTI. You were treated empirically for presumed gonorrhea/chlamydia. Your definitive lab results will not be ready for a couple of days. Should they come back positive, you will receive a phone call from someone in the emergency department. At that time, you should advise your current partner to receive testing and treatment as well. Return to the emergency department if you have worsening low abdominal pain or other symptoms. Attending Signature I have participated in the care of this patient and I have reviewed and agree with all pertinent clinical information above including history, exam, and recommendations. (HARRIET TAPIA DO) ROSELINE DOMINGO May 06, 2021 13:47 HARRIET TAPIA DO May 06, 2021 14:31
== END 2021-05-06 14:00 | disposition home or self-care (01) ==
LOC: ER 12:16
DX: A64 Unspecified sexually transmitted disease (principal); F17.200 Nicotine dependence, unspecified, uncomplicated
CPT/HCPCS: 81001; 81025; 87491; 87591; 96372; 99283; J0696; Q0111

== ENCOUNTER 2021-05-28 10:32 | Emergency (ER) | payer SELFPAY ==
[~2021-05-28] VITALS: Ht 175.3 cm; Wt 104.5 kg
[2021-05-28] MEDS ORDERED: HALOPERIDOL LACTATE 5 MG/ML VIAL. IM ONE (10:45)
[2021-05-28] MEDS ORDERED: FAMOTIDINE 20 MG/2 ML VIAL IVP ONE (10:45)
[2021-05-28] MEDS ORDERED: ONDANSETRON PF 4 MG/2 ML VIAL. IVP ONE ×2 (10:45→14:00)
[2021-05-28] MEDS ORDERED: IV NORMAL SALINE 1000ML BAG 1,000 ML IV ONE (10:45)
[2021-05-28 11:05] LABS: BASO % 0 % (0-3); EOS % 0 % (0-3); HEMATOCRIT 41.7 % (36.0-47.0); HEMOGLOBIN 14.4 g/dL (12.0-15.5); LYMPH % 15 % (24-48); MEAN CORPUSCULAR HEMOGLOBIN 31 pg (25-35); MEAN CORPUSCULAR HGB CONC 35 g/dL (31-37); MEAN CORPUSCULAR VOLUME 91 fL (79-100); MONO # 0.2 x10^3/uL (0.0-1.1); MONO % 3 % (0-9); NEUT # 5.3 x10^3/uL (1.8-7.7); NEUT % 81 % (31-73); PLATELET COUNT 387 x10^3/uL (140-400); RED BLOOD COUNT 4.58 x10^6/uL (3.50-5.40); RED CELL DISTRIBUTION WIDTH 13.4 % (11.5-14.5); WHITE BLOOD COUNT 6.5 x10^3/uL (4.0-11.0)
[2021-05-28 11:15] LABS: CALCIUM 9.2 mg/dL (8.5-10.1); CREATININE 0.9 mg/dL (0.6-1.0); GFR 83.9; POTASSIUM 3.3 mmol/L (3.5-5.1)
[2021-05-28 11:21] LABS: ALBUMIN 4.3 g/dL (3.4-5.0); ALBUMIN/GLOBULIN RATIO 1.1 (1.0-1.7); MAGNESIUM 1.9 mg/dL (1.8-2.4); TOTAL BILIRUBIN 0.7 mg/dL (0.2-1.0); TOTAL PROTEIN 8.3 g/dL (6.4-8.2)
[2021-05-28] MEDS ORDERED: diphenhydrAMINE 50 MG/ML VIAL IVP ONE (12:30)
[2021-05-28] MEDS ORDERED: METOCLOPRAMIDE HCL 10 MG/2 ML VIAL. IVP ONE (12:30)
--- NOTE | 2021-05-28 12:56 | PHYS DOC ---
Past Medical History Additional Past Medical Histor: Cyclic vomiting Past Surgical History: Other Additional Past Surgical Histo: ovarian cyst sx Smoking Status: Current Every Day Smoker Alcohol Use: Occasionally Drug Use: Marijuana Social History Narrative: Stopped smoking marijuana "3 weeks ago" General Adult EDM: Chief Complaint: ABDOMINAL PAIN HPI: HPI: Patient is a 41 year old female presents with report of nausea and vomiting with abdominal cramping that started last night. Patient does have a history of cyclic vomiting syndrome. Patient reports she has vomited several times. Denies fever or chills. Denies . Patient reports she last used marijuana approximately 3 weeks ago. Denies known sick contacts. Denies known exposure to COVID-19. Review of Systems: Review of Systems: Constitutional: Denies fever or chills Eyes: Denies redness or eye pain HENT: Denies nasal congestion or sore throat Respiratory: Denies cough or shortness of breath Cardiovascular: Denies chest pain or palpitations GI: Reports abdominal pain, nausea, and vomiting : Denies dysuria or hematuria Musculoskeletal: Denies back pain or joint pain Integument: Denies rash or skin lesions Neurologic: Denies headache, focal weakness or sensory changes Complete systems were reviewed and found to be within normal limits, except as documented in this note. Heart Score: C/O Chest Pain: N/A Current Medications: Current Medications Medications (Trade) Dose Ordered Sig/Huber Start Time Stop Time Status Last Admin Dose Admin Diphenhydramine HCl (Benadryl) 25 mg 1X ONCE 05/28/21 12:30 05/28/21 12:31 DC 05/28/21 12:22 25 MG Famotidine (Pepcid Vial) 20 mg 1X ONCE 05/28/21 10:45 05/28/21 10:46 DC 05/28/21 11:24 20 MG Haloperidol Lactate (Haldol Inj) 5 mg 1X ONCE 05/28/21 10:45 05/28/21 10:46 DC 05/28/21 11:26 5 MG Metoclopramide HCl (Reglan Vial) 10 mg 1X ONCE 05/28/21 12:30 05/28/21 12:31 DC 05/28/21 12:22 10 MG Ondansetron HCl (Zofran) 4 mg 1X ONCE 05/28/21 10:45 05/28/21 10:46 DC 05/28/21 11:23 4 MG Sodium Chloride 1,000 ml @ 1,000 mls/hr 1X ONCE 05/28/21 10:45 05/28/21 11:44 DC 05/28/21 11:22 1,000 MLS/HR Allergies: Allergies: Allergies Coded Allergies Type Severity Reaction Last Updated Verified No Known Drug Allergies 04/19/21 No Physical Exam: PE: Constitutional: Well developed, well nourished, no acute distress, non-toxic appearance HENT: Normocephalic, atraumatic Eyes: Conjunctiva normal, no discharge Neck: Normal range of motion, supple Lungs & Thorax: No respiratory distress, equal chest rise and fall Abdomen: Soft, no tenderness, no guarding/rebound tenderness/distention Skin: Warm, dry, no erythema, no rash Back: No tenderness, no CVA tenderness Extremities: No tenderness, ROM intact, no edema Neurologic: Alert and oriented X 3, no focal deficits noted Psychologic: Affect normal, judgment normal Current Patient Data: Labs: Laboratory Tests Test 05/28/21 10:50 White Blood Count 6.5 x10^3/uL (4.0-11.0) Red Blood Count 4.58 x10^6/uL (3.50-5.40) Hemoglobin 14.4 g/dL (12.0-15.5) Hematocrit 41.7 % (36.0-47.0) Mean Corpuscular Volume 91 fL (79-100) Mean Corpuscular Hemoglobin 31 pg (25-35) Mean Corpuscular Hemoglobin Concent 35 g/dL (31-37) Red Cell Distribution Width 13.4 % (11.5-14.5) Platelet Count 387 x10^3/uL (140-400) Neutrophils (%) (Auto) 81 % (31-73) H Lymphocytes (%) (Auto) 15 % (24-48) L Monocytes (%) (Auto) 3 % (0-9) Eosinophils (%) (Auto) 0 % (0-3) Basophils (%) (Auto) 0 % (0-3) Neutrophils # (Auto) 5.3 x10^3/uL (1.8-7.7) Lymphocytes # (Auto) 1.0 x10^3/uL (1.0-4.8) Monocytes # (Auto) 0.2 x10^3/uL (0.0-1.1) Eosinophils # (Auto) 0.0 x10^3/uL (0.0-0.7) Basophils # (Auto) 0.0 x10^3/uL (0.0-0.2) Sodium Level 140 mmol/L (136-145) Potassium Level 3.3 mmol/L (3.5-5.1) L Chloride Level 101 mmol/L (98-107) Carbon Dioxide Level 19 mmol/L (21-32) L Anion Gap 20 (6-14) H Blood Urea Nitrogen 10 mg/dL (7-20) Creatinine 0.9 mg/dL (0.6-1.0) Estimated GFR (Cockcroft-Gault) 83.9 BUN/Creatinine Ratio 11 (6-20) Glucose Level 138 mg/dL (70-99) H Calcium Level 9.2 mg/dL (8.5-10.1) Magnesium Level 1.9 mg/dL (1.8-2.4) Total Bilirubin 0.7 mg/dL (0.2-1.0) Aspartate Amino Transferase (AST) 56 U/L (15-37) H Alanine Aminotransferase (ALT) 79 U/L (14-59) H Alkaline Phosphatase 55 U/L (46-116) Creatine Kinase 300 U/L (26-192) H Creatine Kinase MB (Mass) 0.9 ng/mL (0.0-3.6) Creatine Kinase MB Relative Index 0.3 % (0-4) Troponin I Quantitative < 0.017 ng/mL (0.000-0.055) Total Protein 8.3 g/dL (6.4-8.2) H Albumin 4.3 g/dL (3.4-5.0) Albumin/Globulin Ratio 1.1 (1.0-1.7) Lipase 60 U/L (73-393) L Ethyl Alcohol Level < 10 mg/dL (0-10) Laboratory Tests 05/28/21 10:50 Laboratory Tests 05/28/21 10:50 Vital Signs: Vital Signs Date Time Temp Pulse Resp B/P (MAP) Pulse Ox O2 Delivery O2 Flow Rate FiO2 05/28/21 11:40 58 39 152/67 (95) 97 Room Air 05/28/21 10:40 98.2 98.2 EKG: EKG: @1044 NSR at 78bpm, NO ST elevation, QRS 88ms, QT/QTc 408/469ms, baseline artifact Radiology/Procedures: Radiology/Procedures: [] Course & Med Decision Making: Course & Med Decision Making Pertinent Lab studies reviewed. (See chart for details) Patient with HPI and physical exam concerning for chronic cyclic vomiting syndrome. Patient has history of marijuana abuse. Patient reports she has not used for the last 3 weeks. Patient does report some abdominal discomfort. Labs obtained and posted to chart. Hypokalemia addressed. UDS is positive for marijuana and PCP. Symptomatic treatment provided with interval improvement of symptoms. Patient again advised to discontinue PCP and marijuana abuse. Patient stable for discharge with outpatient follow-up with PCP/GI. GI referral provided. Discussed findings and plan with patient, who acknowledges understanding and agreement. Marcial Disclaimer: Marcial Disclaimer: This electronic medical record was generated, in whole or in part, using a voice recognition dictation system. Departure Departure Impression: Primary Impression: Cyclical vomiting Additional Impression: Hypokalemia Disposition: HOME / SELF CARE / HOMELESS Condition: STABLE Referrals: NO PCP (PCP) CALLY FONTANEZ MD Patient Instructions: Alcohol and Drug Addiction, Finding Treatment, Cyclic Vomiting Syndrome, Hypokalemia, Potassium Content of Foods Additional Instructions: Your drug screen was still positive for both PCP and marijuana. Please discontinue the substances as they may be contributing to your current symptoms. Scripts Capsaicin (CAPSAICIN) 42.5 Gm Cream..g. 1 ROSALINDA TP TID PRN for ABDOMINAL PAIN, #42.5 GM 0 Refills Wear gloves and apply to area of discomfort. Prov: AIYANA SALAZAR DO 05/28/21 Promethazine Hcl (PROMETHAZINE HCL) 25 Mg Supp.rect 25 MG RC Q6H PRN for NAUSEA/VOMITING, #10 SUPP.RECT Prov: AIYANA SALAZAR DO 05/28/21 Hyoscyamine Sulfate (LEVSIN-SL) 0.125 Mg Tab.subl 0.125 MG SL Q4HRS PRN for PAIN, #14 TAB Prov: AIYANA SALAZAR DO 05/28/21 Ondansetron (ONDANSETRON ODT) 4 Mg Tab.rapdis 1 TAB PO PRN Q6-8HRS PRN for NAUSEA, #16 TAB Prov: AIYANA SALAZAR DO 05/28/21 AIYANA SALAZAR DO May 28, 2021 12:56
[2021-05-28] MEDS ORDERED: POTASSIUM CHLORIDE 10 MEQ TABLET.ER. PO ONE (13:30)
[2021-05-28 13:54] LABS: BILIRUBIN,URINE NEGATIVE (NEG); CLARITY,URINE CLEAR; COLOR,URINE YELLOW; NITRITE,URINE NEGATIVE (NEG); PH,URINE 5.5 (<5.0-8.0); PROTEIN,URINE 30 mg/dL (NEG-TRACE); UROBILINOGEN,URINE 0.2 mg/dL (0.2 mg/dL)
[2021-05-28 14:03] LABS: BARBITURATES NEG (NEG); BENZODIAZEPINES NEG (NEG); CANNABINOIDS POS (NEG); COCAINE NEG (NEG); METHADONE NEG (NEG); OPIATES NEG (NEG); PHENCYCLIDINE POS (NEG)
[2021-05-28 14:05] LABS: AMPHETAMINE/METHAMPHETAMINE NEG (NEG)
[2021-05-28 14:11] LABS: BACTERIA,URINE MODERATE /HPF (0-FEW); RBC,URINE RARE /HPF (0-2); WBC,URINE OCC /HPF (0-4)
[2021-05-28 15:10] VITALS: BP 173/79
[2021-05-28] MEDS ORDERED: PROM25SU33 RC (15:10)
[2021-05-28] MEDS ORDERED: ONDA4TAB12 PO (15:10)
[2021-05-28] MEDS ORDERED: CAPS42.514 TP (15:10)
[2021-05-28] MEDS ORDERED: HYOS0.1265 SL (15:10)
--- NOTE | 2021-05-28 17:27 | EKG ---
[facility] [address] [place] [address] Test Date: 2021-05-28 Test Time: 10:44:28 Pat Name: RACHELLE ANGEL Department: Room: Gender: F [employer]: : 1980 Requested By: AIYANA SALAZAR Order Number: [id number] Reading MD: Ronaldo Chambers MD Measurements Intervals Olin Rate: 78 P: 66 ND: 168 QRS: 64 QRSD: 88 T: -24 QT: 408 QTc: 469 Interpretive Statements SINUS RHYTHM QRS(T) CONTOUR ABNORMALITY CONSISTENT WITH ANTEROSEPTAL INFARCT PROBABLY OLD T ABNORMALITY IN INFERIOR LEADS ABNORMAL ECG Electronically Signed On 05-31-2021 11:38:54 CDT by Ronaldo Chambers MD
== END 2021-05-28 15:30 | disposition home or self-care (01) ==
LOC: ER 10:32
DX: R11.15 Cyclical vomiting syndrome unrelated to migraine (principal); E87.6 Hypokalemia; F17.200 Nicotine dependence, unspecified, uncomplicated
CPT/HCPCS: 36415; 80053; 80307; 81001; 81025; 82553; 83690; 83735; 84484; 85025; 87086; 93005; 96361; 96372; 96374; 96375; 96376; 99285; G0480; J1200; J1630; J2060; J2405; J2765; J3490; J7030